=== PATIENT | male | born 1985 | race Caucasian/White ===

== ENCOUNTER 2017-06-22 21:54 | Emergency (ER) | payer SELFPAY ==
[2017-06-22 22:19] LABS: BASOPHILS % (AUTO) 0.6 % (0.0-5.0); EOSINOPHILS % (AUTO) 0.5 % (0.0-8.0); HEMATOCRIT 42.5 % (42-54); LYMPHOCYTES % (AUTO) 18.7 % (21.0-51.0); MEAN CORPUSCULAR HEMOGLOBIN 30.6 pg (27.0-33.0); MEAN CORPUSCULAR HGB CONC 34.8 g/dL (32.0-36.0); MEAN CORPUSCULAR VOLUME 87.8 fL (79-99); NEUTROPHILS % (AUTO) 73.2 % (40.0-77.0); PLATELET COUNT (AUTO) 411 K/uL (130-400); RED BLOOD CELL COUNT(AUTO) 4.84 MIL/uL (4.50-6.20); WHITE BLOOD COUNT (AUTO) 15.5 K/uL (4.8-10.8)
[2017-06-22] MEDS ORDERED: NITROGLYCERIN 1GM/1 INCH PACKET TD ONE (22:28)
[2017-06-22] MEDS ORDERED: ASPIRIN 325 MG TABLET ONE (22:28)
[2017-06-22] MEDS ORDERED: LORAZEPAM 2 MG/ML 1 ML VIAL ONE (22:29)
[2017-06-22 22:30] LABS: POTASSIUM 3.7 mmol/L (3.5-5.1)
[2017-06-22 22:31] LABS: INR 0.93 (0.85-1.15); PARTIAL THROMBOPLASTIN TIME 25.2 SEC (26.3-35.5); PROTHROMBIN TIME 9.6 SEC (9.6-11.6)
[2017-06-22 22:45] LABS: ALBUMIN 4.2 g/dL (3.5-5.0); BILIRUBIN,TOTAL 0.7 mg/dL (0.2-1.0); CREATINE KINASE MB 7.6 ng/mL (0.5-3.6); TOTAL PROTEIN, SERUM 7.9 g/dL (6.0-8.3)
[2017-06-22] MEDS ORDERED: SODIUM CHLORIDE 0.9% 1000ML 1,000 ML IV ONE (23:48)
== END 2017-06-23 01:07 | disposition home or self-care (01) ==
LOC: EDH 21:54
DX: F14.129 Cocaine abuse with intoxication, unspecified (principal); R07.89 Other chest pain; E11.9 Type 2 diabetes mellitus without complications; I10 Essential (primary) hypertension; Z86.73 Personal history of transient ischemic attack (TIA), and cerebral infarction without residual deficits; Z72.0 Tobacco use; Z88.1 Allergy status to other antibiotic agents
CPT/HCPCS: 36415 ×2; 71045; 80053; 82550 ×2; 82553; 83874; 84484 ×2; 85025; 85610; 85730; 93005; 94761; 96361; 96374; 99285; J2060; J7030

== ENCOUNTER 2022-11-06 22:33 | Emergency (ER) | payer OTHER ==
[~2022-11-06] VITALS: Ht 167.6 cm; Wt 77.1 kg
[2022-11-06 22:34] VITALS: BP 128/80; PULSE 86; RESP 18
== END 2022-11-07 02:38 | disposition left against medical advice (07) ==
LOC: EDH 22:33
DX: R10.9 Unspecified abdominal pain (principal); Z53.21 Procedure and treatment not carried out due to patient leaving prior to being seen by health care provider
CPT/HCPCS: 99281

== ENCOUNTER 2023-03-16 22:14 | Emergency (ER) | payer OTHER ==
[~2023-03-16] VITALS: Ht 170.2 cm; Wt 72.6 kg
[2023-03-17] MEDS ORDERED: CYCL10TA16 PO (00:47)
[2023-03-17] MEDS ORDERED: ACET-2893 PO (00:47)
[2023-03-17 00:59] VITALS: BP 152/78; PULSE 82; RESP 18; O2SAT 98
[2023-03-17] MEDS ORDERED: CYCLOBENZAPRINE HCL 10 MG TABLET PO ONE (01:00)
[2023-03-17] MEDS ORDERED: ACETAMINOPHEN 325 MG TAB PO ONE (01:00)
== END 2023-03-17 01:15 | disposition home or self-care (01) ==
LOC: EDH 22:14
DX: S83.8X1A Sprain of other specified parts of right knee, initial encounter (principal); Z88.1 Allergy status to other antibiotic agents; Z88.2 Allergy status to sulfonamides; Z88.8 Allergy status to other drugs, medicaments and biological substances; Z86.718 Personal history of other venous thrombosis and embolism; Z98.890 Other specified postprocedural states; X58.XXXA Exposure to other specified factors, initial encounter; Y93.02 Activity, running; Y92.89 Other specified places as the place of occurrence of the external cause; Y99.8 Other external cause status
CPT/HCPCS: 73562

== ENCOUNTER 2024-04-26 23:25 | Emergency (ER) | payer BC, OTHER ==
[~2024-04-26] VITALS: Ht 170.2 cm; Wt 72.6 kg
[~2024-04-26 23:25] MED LIST: ACET-2893 PO; CYCL10TA16 PO
--- NOTE | 2024-04-26 23:38 | ERN ---
ED Note History of Present Illness Stated Complaint: RT LEG PAIN Chief Complaint: Lower Extremity Pain/Injury Time Seen by MD: 23:34 Dictation: This is a 38-year-old male who presented to the emergency room stating that his right knee got twisted he jumped back and since then for the past 1 week it has been painful. He stated that this happened on 04/19/2024 he did not fall but he just felt like his right knee was twisted. He has had surgery in the past [address] Sinhg in [facility]. At that time patient also had compartment syndrome requiring fasciotomies. Temperature 98.3 pulse 90 respirations 20 blood pressure 133/95 with a pulse oximetry of 98% on room air Chronic medical problems asthma, history of DVT, history of ulcerative colitis and right leg compartment syndrome surgery 6 years ago Allergies: Coded Allergies: No Known Drug Allergies (Unverified Allergy, Unknown, 11/06/22) Sulfa (Sulfonamide Antibiotics) (Unverified Allergy, Unknown, 03/16/23) sulfamethoxazole (Unverified Allergy, Unknown, 03/16/23) trimethoprim (Unverified Allergy, Unknown, 03/16/23) Home Meds Active Scripts Ketorolac Tromethamine (Toradol) 10 Mg Tab, 10 MG PO QID for pain for 5 Days, #20 TAB 0 Refills Prov:JAYCE IZAGUIRRE MD 04/27/24 Acetaminophen (Acetaminophen ER) 650 Mg Tablet.er, 650 MG PO TID, #30 TAB Prov:ROYA WAGNER 03/17/23 Cyclobenzaprine HCl (Flexeril) 10 Mg Tab, 10 MG PO TID, #15 TAB Prov:ROYA WAGNER 03/17/23 Past Medical History Past Medical History: Asthma, DVT, Other Additional Past Medical Hx: ULCERATIVE COLLLITIS, COMPARTMENT SYNDROME RT LEG Surgical History: Other Surgical History Other: MULTIPLE RT KNEE / LEG X 4 Family History: Negative Social History: Smokers, Drugs, ETOH RN Note Reviewed/Agreed w/PFSH: Yes Review of System Dictation Constitutional: Negative for fever,chills, and weight loss Eyes: Negative for injury, pain,redness, and discharge ENT: Negative for injury,pain or swelling Cardiovascular: Negative for chest pain, palpitations, and edema Respiratory: Negative for shortness of breath, cough, and wheezing, Abdomen/GI: Negative for abdominal pain, nausea, vomiting, diarrhea, and constipation Back: Negative for injury and pain : Negative for injury, bleeding and discharge MS/Extremity: Negative for injury and deformity right knee pain Skin: Negative for rash, and discoloration Neuro: Negative for headache, weakness, numbness, tingling, and seizure Psych: Negative for suicide ideation, homicidal ideation, and hallucinations Initial Vital Sign VS Vital Signs Date Time Temp Pulse Resp B/P (MAP) Pulse Ox O2 Delivery O2 Flow Rate FiO2 04/26/24 23:27 98.2 90 20 133/95 96 Room Air 04/26/24 23:35 0 21 Physical Exam Dictation General: awake, alert, NAD , thin chronically ill-appearing male who is not in any distress Head/Face: Normocephalic, atraumatic Eyes: PERRL, EOMI, vision at baseline ENT: oral cavity clear, TMs clear, no signs of infection Neck: Trachea midline, supple, no nuchal rigidity Cardiovascular: RRR, normal S1/S2, No MRGs, no JVD Respiratory: CTAB, no respiratory distress, No rales or wheezes Abdomen: Soft, non-tender, non-distended, normal bowel sounds, no guarding or rebound. Skin: Warm, dry, normal turgor, no rash MS/Extremity: Pulses equal, no cyanosis, neurovascular intact, FROM right knee old healed incision from his previous surgery. I did not appreciate any warmth cellulitis or induration. No other changes noted in the right leg other than old healed fasciotomy scars Neuro: COAx4, GCS 15, strength 5/5, CN 2-12 intact, normal cerebellar exam, normal gait, Psych: Normal behavior, mood, and affect normal Extremities-trace edema without any palpable cords, Homans sign is negative Results (Laboratory/Radiology) Laboratory/Radiology Laboratory Tests Test 04/26/24 23:47 White Blood Count 9.2 K/uL (4.8-10.8) Red Blood Count 4.11 MIL/uL (4.50-6.20) L Hemoglobin 12.3 g/dL (14.0-18.0) L Hematocrit 37.0 % (42-54) L Mean Corpuscular Volume 90.0 fL (79-99) Mean Corpuscular Hemoglobin 29.9 pg (27.0-33.0) Mean Corpuscular Hemoglobin Concent 33.2 g/dL (32.0-36.0) Red Cell Distribution Width 14.7 % (11.0-15.5) Platelet Count 351 K/uL (130-400) Mean Platelet Volume 9.1 fL (7.5-10.5) Immature Granulocyte % (Auto) 0.1 % (0-1) Neutrophils (%) (Auto) 47.0 % (40.0-77.0) Lymphocytes (%) (Auto) 42.4 % (21.0-51.0) Monocytes (%) (Auto) 7.3 % (3.0-13.0) Eosinophils (%) (Auto) 2.7 % (0.0-8.0) Basophils (%) (Auto) 0.5 % (0.0-5.0) Neutrophils # (Auto) 4.3 K/uL (1.8-7.7) Lymphocytes # (Auto) 3.9 K/uL (1.0-4.8) Monocytes # (Auto) 0.7 K/uL (0.1-1.0) Eosinophils # (Auto) 0.25 K/uL (0.00-0.70) Basophils # (Auto) 0.05 K/uL (0.00-0.20) Absolute Immature Granulocyte (auto 0.01 K/uL (0-1) Nucleated Red Blood Cells 0.0 % (0.0-0.19) Sodium Level 142 mmol/L (136-145) Potassium Level 4.0 mmol/L (3.5-5.1) Chloride Level 105 mmol/L (101-111) Carbon Dioxide Level 33 mmol/L (21-32) H Blood Urea Nitrogen 9 mg/dL (7-18) Creatinine 1.0 mg/dL (0.5-1.3) Glomerular Filtration Rate Calc 98 mL/min (>90) Random Glucose 114 mg/dL (70-105) H Total Calcium 8.7 mg/dL (8.5-10.1) Labs Reviewed?: Yes ED Course ED Course Orders Procedure Category Date Status Time Cbc With Differential LAB 04/26/24 Complete 23:36 Basic Metabolic Panel LAB 04/26/24 Complete 23:36 Ketorolac PHA 04/27/24 Complete Tromethamine 30mg/Ml 00:00 Knee 3vws Rt RAD 04/26/24 Taken 23:43 Knee Immobilizer MARIA EUGENIA 04/27/24 In Process 00:44 Current Medications Medications (Trade) Dose Ordered Sig/Debbie Route PRN Reason Start Time Stop Time Status Last Admin Dose Admin Ketorolac Tromethamine (toRADol) 30 mg ONCE ONCE IM 04/27/24 00:00 04/27/24 00:01 DC 04/27/24 00:20 Vital Signs Date Time Temp Pulse Resp B/P (MAP) Pulse Ox O2 Delivery O2 Flow Rate FiO2 04/27/24 00:42 98.8 65 20 124/76 100 Room Air* 0 21 04/26/24 23:35 98.6 66 20 122/74 100 Room Air* 0 21 04/26/24 23:27 98.2 90 20 133/95 96 Room Air We will perform diagnostic labs, imaging and administer medications according to the patient's complaint. Once the results are available, will review and personally interpreted the labs to rule out any acute life-threatening emergency the trach require immediate intervention and treatment. I will then re-evaluate the patient after treatment and diagnostic exams have return to determine whether the patient requires any further testing, can safely be discharged home or need further admission to hospital for additional treatment and evaluation. Labs reviewed CBC BNP 7 with a normal limits. Right knee x-ray does not show any acute fracture or dislocation. Final radiology report is pending at this time. Patient responded to a dose of Toradol was able to ambulate to the bathroom without any problems. Discharge to follow up with Dr. Singh orthopedic surgeon and his primary care Medical Decision Making MDM MDM: Differential diagnosis: Right knee dislocation, fracture, ligamental tear, arthritis Rationale: Tests considered and ordered secondary to shared decision making include: Previous outside records reviewed: Old ER visits. Risk of complication and/or morbidity or mortality of patient management: None Medications-Per medication reconciliation Need for hospitalization: Patient does not meet criteria for hospitalization. Need for emergency major/minor surgery: No There are no social concerns with this patient. Prescription drug management Prescriptions will include symptomatic care Patient's prior external medical records from other ER visits were reviewed by me as indicated. Prior testing and results from previous visits were reviewed. Prior tests were taken into account with medical decision making and resource utilization, independent historian/historians were used to obtain complete medical history. I independently interpreted the test that were performed, results were reviewed by me and considered findings on radiology if ordered. Medical management and examination interpretation discussions were had by me with other qualified healthcare professionals as indicated for the patient's care. Problem List Problem List: (1) Right knee sprain DX & DISP Disposition: Discharge Departure Impression: Primary Impression: Right knee sprain Condition: Stable Scripts Ketorolac Tromethamine (Toradol) 10 Mg Tab 10 MG PO QID for pain for 5 Days, #20 TAB 0 Refills Prov: JAYCE IZAGUIRRE MD 04/27/24 Additional Instructions: Patient and the caregiver have been informed of all the diagnostic tests and the imaging conducted during the today's visit to the emergency room and has verbalized understanding of the results I have personally reviewed and interpreted all diagnostic exams performed here in the ER today as well as the vital signs documented by the nursing staff. The patient is now being discharged to home and should follow up with the primary care physician or the specialist as directed by the ER staff. Follow-up with primary care provider in 1 to 2 days. Take medications as directed here in the emergency room. Okay to continue home medications unless otherwise discussed during your visit in the emergency room today. Return to your nearest emergency room if symptoms worsen or if there is no improvement. Call 911 if you need immediate assistance. Take Tylenol or Motrin [id number] as needed and if no contraindications are present. Increase oral hydration. A wound culture or urine culture was ordered here in the emergency room department please follow-up with primary care provider and advise them to get repeat ports from our facility. If you had any Chan wrap/splints that were applied here, please do not remove them until you see your primary care or specialty. Patient to follow up with Dr. Singh, orthopedic surgeon for his right knee problems. Referrals: SELF,REFERRAL (PCP) JAYCE IZAGUIRRE MD Apr 26, 2024 23:38
[2024-04-26 23:52] LABS: BASOPHILS # (AUTO) 0.05 K/uL (0.00-0.20); BASOPHILS % (AUTO) 0.5 % (0.0-5.0); EOSINOPHILS # (AUTO) 0.25 K/uL (0.00-0.70); EOSINOPHILS % (AUTO) 2.7 % (0.0-8.0); IMMATURE GRANULOCYTE ABSOLUTE 0.01 K/uL (0-1); LYMPHOCYTES # (AUTO) 3.9 K/uL (1.0-4.8); LYMPHOCYTES % (AUTO) 42.4 % (21.0-51.0); MEAN CORPUSCULAR HEMOGLOBIN 29.9 pg (27.0-33.0); MEAN CORPUSCULAR HGB CONC 33.2 g/dL (32.0-36.0); MONOCYTES # (AUTO) 0.7 K/uL (0.1-1.0); MONOCYTES % (AUTO) 7.3 % (3.0-13.0); NEUTROPHILS # (AUTO) 4.3 K/uL (1.8-7.7); PLATELET COUNT (AUTO) 351 K/uL (130-400); RED BLOOD CELL COUNT(AUTO) 4.11 MIL/uL (4.50-6.20); RED CELL DISTRIBUTION WIDTH 14.7 % (11.0-15.5); WHITE BLOOD COUNT (AUTO) 9.2 K/uL (4.8-10.8)
[2024-04-27] MEDS: ketOROlac 30MG VIAL (30MG/ML) IM ONE (00:20)
[2024-04-27 00:42] VITALS: BP 124/76; PULSE 65; RESP 20; TEMP 98.7; O2SAT 100
[2024-04-27] MEDS ORDERED: KETO10 PO (00:44)
--- NOTE | 2024-04-27 00:46 | NUR ---
KNEE IMOBILIZER PLACED ON PATIENT, TOLERATED WELL
--- NOTE | 2024-04-27 08:26 | HMCIMG ---
RIGHT KNEE RADIOGRAPHS - 3 VIEWS INDICATION: Pain COMPARISON: 03/16/2023 FINDINGS: AP, lateral, and oblique views. No acute fracture or dislocation identified. No significant joint effusion is present. Overlying soft tissues appear normal. IMPRESSION: No evidence for fracture or dislocation.
== END 2024-04-27 00:47 | disposition home or self-care (01) ==
LOC: EDH 23:25
DX: S83.8X1A Sprain of other specified parts of right knee, initial encounter (principal); F17.200 Nicotine dependence, unspecified, uncomplicated; J45.909 Unspecified asthma, uncomplicated; Z88.1 Allergy status to other antibiotic agents; Z88.2 Allergy status to sulfonamides; X50.1XXA Overexertion from prolonged static or awkward postures, initial encounter; Y93.89 Activity, other specified; Y92.89 Other specified places as the place of occurrence of the external cause; Y99.8 Other external cause status
CPT/HCPCS: 99284; 80048; 85025; 36415; 73562; 29505; 96372; J1885